=== PATIENT | female | born 1995 | race Two or more races ===

== ENCOUNTER 2022-04-04 09:45 | Emergency (ER) | payer SELFPAY ==
[~2022-04-04] VITALS: Ht 154.9 cm; Wt 63.5 kg
[2022-04-04 09:52] VITALS: BP 107/62
--- NOTE | 2022-04-04 10:14 | NUR ---
dr comer at bedside for eval.
[2022-04-04] MEDS ORDERED: CLOT15CR27 TP (11:56)
--- NOTE | 2022-04-04 12:03 | NUR ---
Patient discharged to home in stable condition. Written and verbal after care instructions given. Patient verbalizes understanding of instruction.
== END 2022-04-04 12:03 | disposition home or self-care (01) ==
LOC: ER 09:50
DX: N76.0 Acute vaginitis (principal); N94.10 Unspecified dyspareunia; Z79.899 Other long term (current) drug therapy
CPT/HCPCS: 87070-TC; 87210-TC; 87491; 87591